=== PATIENT | female | born 1990 | race Caucasian/White ===

== ENCOUNTER 2023-04-06 13:06 | Outpatient (RCR) | payer OTHER, SELFPAY | END 2023-04-06 23:59 | disposition home or self-care (01) | LOC: RPT 13:06 | PROVIDERS: ATTENDING PHYSICIAN Family Medicine; FAMILY PHYSICIAN Internal Medicine | DX: M62.89 Other specified disorders of muscle (principal); N32.81 Overactive bladder; Z73.6 Limitation of activities due to disability | CPT/HCPCS: 97110; 97162; 97535 ==

== ENCOUNTER 2023-05-04 13:03 | Outpatient (RCR) | payer OTHER, SELFPAY | END 2023-05-04 23:59 | disposition home or self-care (01) | LOC: RPT 13:03 | PROVIDERS: ATTENDING PHYSICIAN Family Medicine; FAMILY PHYSICIAN Internal Medicine | DX: M62.89 Other specified disorders of muscle (principal); N32.81 Overactive bladder; Z73.6 Limitation of activities due to disability; N39.41 Urge incontinence; Q79.60 Ehlers-Danlos syndrome, unspecified | CPT/HCPCS: 97110; 97112; 97140 ==

== ENCOUNTER 2023-05-25 13:05 | Outpatient (RCR) | payer OTHER, SELFPAY | END 2023-05-25 23:59 | disposition home or self-care (01) | LOC: RPT 13:05 | PROVIDERS: ATTENDING PHYSICIAN Family Medicine; FAMILY PHYSICIAN Internal Medicine | DX: M62.89 Other specified disorders of muscle (principal); N32.81 Overactive bladder; Z73.6 Limitation of activities due to disability | CPT/HCPCS: 97014; 97110; 97112; 97140 ==

== ENCOUNTER → 2023-06-18 08:45 | Outpatient (REF) | payer OTHER, SELFPAY | LOC: RAD 08:45 | PROVIDERS: ATTENDING PHYSICIAN Family Medicine | DX: M25.551 Pain in right hip (principal) | CPT/HCPCS: 73502 ==

== ENCOUNTER 2023-07-06 13:00 | Outpatient (RCR) | payer OTHER, SELFPAY | END 2023-07-06 23:59 | disposition home or self-care (01) | LOC: RPT 13:00 | PROVIDERS: ATTENDING PHYSICIAN Family Medicine; FAMILY PHYSICIAN Internal Medicine | DX: M62.89 Other specified disorders of muscle (principal); N32.81 Overactive bladder; Z73.6 Limitation of activities due to disability | CPT/HCPCS: 97110; 97112; 97140 ==

== ENCOUNTER → 2023-07-17 15:48 | Outpatient (REF) | payer OTHER, SELFPAY | LOC: MRI 3T 15:48 | PROVIDERS: ATTENDING PHYSICIAN Family Medicine | DX: M25.551 Pain in right hip (principal) | CPT/HCPCS: 73721 ==

== ENCOUNTER 2023-07-27 15:09 | Outpatient (RCR) | payer OTHER, SELFPAY | END 2023-07-27 23:59 | disposition home or self-care (01) | LOC: RPT 15:09 | PROVIDERS: ATTENDING PHYSICIAN Family Medicine; FAMILY PHYSICIAN Internal Medicine | DX: M62.89 Other specified disorders of muscle (principal); N32.81 Overactive bladder; Z73.6 Limitation of activities due to disability | CPT/HCPCS: 97014; 97110; 97112; 97140 ==

== ENCOUNTER 2023-08-18 14:28 | Outpatient (RCR) | payer OTHER, SELFPAY | END 2023-08-18 23:59 | disposition home or self-care (01) | LOC: RPT 14:28 | PROVIDERS: ATTENDING PHYSICIAN Family Medicine; FAMILY PHYSICIAN Internal Medicine | DX: M62.89 Other specified disorders of muscle (principal); N32.81 Overactive bladder; Z73.6 Limitation of activities due to disability | CPT/HCPCS: 97110; 97112 ==

== ENCOUNTER 2024-10-18 18:51 | Emergency (ER) | payer OTHER, SELFPAY ==
[2024-10-18 19:00] VITALS: BP 124/85
[2024-10-18 19:53] LABS: Hematocrit 34.4 % (37.0-47.0); Hemoglobin 12.1 g/dL (12.0-16.0); Mean Corp Hgb Conc. 35.2 g/dL (33.0-37.0); Mean Corpuscular Volume 87.5 fL (81.0-99.0); Nucleated Red Blood Cells % 0 %; Platelet Count 215 10^3/uL (130-400); Red Cell Dist. Width 12.4 % (11.5-14.5)
[2024-10-18 19:58] LABS: ALT (SGPT) 23 U/L (0-35); AST (SGOT) 34 U/L (14-36); Albumin 3.6 g/dl (3.5-5.0); Alkaline Phosphatase 100 U/L (38-126); Blood Urea Nitrogen 8 mg/dl (7-17); Calcium 9.1 mg/dl (8.4-10.2); Carbon Dioxide 23 mmol/L (22-30); Chloride 106 mmol/L (98-107); Glucose 107 mg/dl (70-99); Potassium 4.3 mmol/L (3.5-5.1); Sodium 134 mmol/L (135-145); Total Protein 6.4 g/dl (6.3-8.2); eGFR > 60.00
[2024-10-18 20:03] LABS: Troponin I < 0.012 ng/ml
[2024-10-18 20:18] LABS: Beta HCG Quantitative 12925.00 mIU/ml
[2024-10-18 21:11] VITALS: BP 114/70; BMI 29.4
[2024-10-18 22:00] VITALS: BP 120/70
[2024-10-18 23:27] LABS: Troponin I < 0.012 ng/ml
--- NOTE | 2024-10-18 23:40 | ED.GENMED ---
History of Present Illness
General
Chief Complaint: Back Pain
Source: patient and spouse
Exam Limitations: none
Time Seen by Provider: 10/18/24 21:02
Nursing documentation reviewed up to this point in time: agreed with
History of Present Illness
History of Present Illness:
Note:
CHIEF COMPLAINT(S)
Intense squeezing pain between shoulder blades and chest
HISTORY OF PRESENT ILLNESS
The patient is a 34-year-old female who presents with episodes of intense squeezing pain localized between the shoulder blades and chest. She describes the pain as unusual and different from any previous experiences, characterized as severe and thea
to 'squeezing.' The onset of pain was between 2:00 and 3:00 PM today, occurring while the patient was sitting on the couch. The pain episodes recurred at around 4:00 PM and 5:30 PM, each lasting approximately 20 minutes. She notes difficulty
catching her breath during the episodes but is unsure if it correlates with the pain. There was no exertion or physical activity triggering the pain. She has a history of heartburn and a diagnosis of joint hypermobility syndrome, specifically the
non-cardiac type. A previous cardiologic evaluation revealed very mild mitral valve prolapse, which was advised to be monitored periodically. Today, she reports normal movements and denies vaginal bleeding or abdominal pain.
EXTERNAL RECORDS REVIEWED
An electrocardiogram (ECG) was conducted, along with blood tests, as part of the current evaluation.
ADDITIONAL HISTORY OBTAINED FROM SOURCES OTHER THAN THE PATIENT
The patient contacted her obstetricians office prior to the visit and was advised to seek evaluation at the emergency department, as the situation was beyond their scope.
PHYSICAL EXAM
General: Patient appears gravid with no acute distress, and she is afebrile.
Cardiovascular: Heart sounds reveal S1 and S2 without the presence of S3 or S4. No murmurs detected. Pulses are normal and palpable in all extremities.
Respiratory: Lungs are clear bilaterally.
Abdomen: Gravid uterus is noted.
PROBLEM LIST
Acute Problems:
1. Intense chest and interscapular pain
2. Dyspnea associated with chest pain episodes
Chronic Problems:
1. Joint hypermobility syndrome
2. Mild mitral valve prolapse
3. Heartburn
PLAN
The plan includes continued monitoring of the patient, evaluation of the ECG and blood test results, and assessment of well-being. External monitoring is to be initiated to ensure status. Further cardiological evaluation might be
necessary if symptoms persist or findings suggestive of cardiac involvement are noted.
DIFFERENTIAL DIAGNOSIS
The Differential Diagnosis includes, in no particular order and is not limited to:
1. Myocardial ischemia
2. Gastroesophageal reflux disease
3. Mitral valve prolapse symptomatology
4. Pulmonary embolism
5. Aortic dissection
6. Musculoskeletal pain secondary to joint hypermobility
7. Costochondritis
8. Pericarditis
9. Anxiety or panic attack
10. Thoracic outlet syndrome
EKG
My independent EKG interpretation is:
- Rhythm: Normal sinus rhythm with sinus arrhythmia
- RI Interval: Normal
- QRS Duration: Normal
- ST Segment: Normal
- QT Interval: Normal
- No ischemia observed
CARE-UPDATE
10/18/24 - 23:41
The patient remains asymptomatic with stable cardiac and activity. No suspicion of ACS, PE, or aortic dissection. The patient is stable and cleared for discharge. Follow-up with primary care and OB is advised.
Disposition:
SUMMARY OF ENCOUNTER
The patient, a 34-year-old female, was seen in the emergency department for episodes of intense squeezing pain between the shoulder blades and chest. The onset was sudden, with recurrent episodes lasting about 20 minutes each. The pain was atypical
and accompanied by dyspnea. Given the patients history of mild mitral valve prolapse and joint hypermobility syndrome, a thorough cardiac evaluation was conducted. An ECG and blood tests were performed, showing no signs of acute cardiac events. The
patient was stable, with clear lungs and normal heart sounds upon examination. Consultations with her body component engineer were made to ensure well-being, and external monitoring was ordered.
DISPOSITION
Discharge.
ASSESSMENT
Acute intense chest and interscapular pain, dyspnea, and non-cardiac chest pain.
PLAN
- Continue to monitor symptoms and advise follow-up with primary care and PRODUCT DEVELOPMENT ENGINEER.
- Evaluate if there are recurrent episodes of pain or any new symptoms develop.
- Ensure external monitoring is conducted to ensure well-being.
- Further cardiologic evaluation if symptoms persist.
INDEPENDENT REVIEW OF LABS AND INTERPRETATION OF TESTS
My independent EKG interpretation is:
- Rhythm: Normal sinus rhythm with sinus arrhythmia
- RI Interval: Normal
- QRS Duration: Normal
- ST Segment: Normal
- QT Interval: Normal
- No ischemia observed
MANAGEMENT OF THE PATIENTS CARE WAS DISCUSSED WITH
Discussion was held with Dr. Manuel, the patient�s body component engineer, who agreed that the patient was stable for discharge after monitoring.
PATIENT EDUCATION AND COUNSELING
The patient was advised to follow up with her primary care provider and PRODUCT DEVELOPMENT ENGINEER, and to return to the emergency department if there was a recurrence of pain or any new symptoms.
FOLLOW-UP INSTRUCTIONS
The patient is instructed to follow up with her primary care physician and PRODUCT DEVELOPMENT ENGINEER for continued monitoring and care.
MEDICATION RECONCILIATION
No medications were administered or prescribed during the visit.
MEDICAL DECISION MAKING
-Chronic conditions affecting care include joint hypermobility syndrome, mild mitral valve prolapse, heartburn.
-Data:
Category 1:
-Non-emergency department records reviewed, external record reviewed included a previous cardiological evaluation noting mild mitral valve prolapse.
-Clinical information obtained from an independent historian included advice from the obstetricians office to seek emergency evaluation.
Category 3:
-Discussion of management with Dr. Manuel, the PRODUCT DEVELOPMENT ENGINEER, who agreed the patient was stable for discharge after monitoring.
-Risk: Consideration of Admission/Observation: Escalation of care including admission/observation was considered given the complexity and risk of the patients presenting complaint, exam findings, and underlying comorbidities. However, ultimately the
patient is deemed safe for outpatient management with close follow-up. Reasoning: Work-up is reassuring, does not reveal any acute life/organ-threatening processes, patients symptoms well-controlled upon reevaluation, reexamination is reassuring,
vitals are stable, patient agreeable with discharge, reliable for follow-up.
DIAGNOSIS
- Non-cardiac chest pain (ICD-10: R07.89)
- Back pain (ICD-10: M54.9)
Phy Exam
Physical Exam
Physical Exam:
.
Course
Orders/Labs/Results
Orders:
Orders
10/18/24 19:05
Electrocardiogram (*1) Urgent
Reason for Study: Chest Pain
EKG- Treatment ONCE
10/18/24 19:12
Complete Blood Count/With Diff Urgent
Comprehensive Metabolic Panel Urgent
HCG, Beta Quantitative [Beta HCG Quantitative] Urgent
Is this a screen?: No
Troponin I Urgent
10/18/24 22:58
Troponin I Urgent
Abnormal Lab Results
10/18/24
19:12
WBC 10.9 H 10^3/uL
(4.8-10.8)
RBC 3.93 L 10^6/uL
(4.20-5.40)
Hct 34.4 L %
(37.0-47.0)
Abs Immat Gran (auto) 0.1 H 10^3/uL
(0-0.05)
Absolute Neuts (auto) 7.6 H 10^3/uL
(1.4-6.5)
Absolute Monos (auto) 1.0 H 10^3/uL
(0.1-0.6)
Lymphocytes % 20.0 L %
(20.5-51.1)
Sodium 134 L mmol/L
(135-145)
Creatinine 0.5 L mg/dL
(0.6-1.0)
Glucose 107 H mg/dl
(70-99)
10/18/24 19:12
10/18/24 19:12
Vital Signs
Initial and Last Documented VS:
Initial Vital Signs
Temp Pulse Resp BP Pulse Ox
97.6 F 80 18 124/85 97
10/18/24 19:00 10/18/24 19:00 10/18/24 19:00 10/18/24 19:00 10/18/24 19:00
Last Documented Vital Signs
Temp Pulse Resp BP Pulse Ox
97.6 F 72 18 120/70 97
10/18/24 19:00 10/18/24 23:15 10/18/24 23:15 10/18/24 22:00 10/18/24 23:15
*Pulse Oximetry
SaO2: 97
Oxygen Mode of Delivery: Room air
Patient hypoxic: no
*Critical Care Note
Total Time (30-74mins, 75-104mins- exclusive of procedures): Not Applicable
ED Attending Note
-
Portions of this chart may have been created with voice recognition software.� Occasional wrong word or��sound alike� substitutions may have occurred due to the inherent limitations of voice recognition software.
Discharge Plan
Departure
Patient Disposition: Home (Routine Discharge)
Date of Disposition: 10/18/24
Time of Disposition: 23:42
Patient with high blood pressure during this ER visit?: No
Condition: Good
Discharge Problem:
Chest pain
Instructions: Upper Back Pain (DC), Chest pain - Discharge instructions
Prescriptions:
No Action
[id number] 1 mg Tablet
1 tab PO DAILY
ibuprofen 600 mg Tablet
600 mg PO Q6HPRN PRN (Reason: moderate pain/cramps) Qty: 0 0RF
acetaminophen 325 mg Tablet
650 mg PO Q4HPRN PRN (Reason: mild pain) Qty: 0 0RF
Referrals:
Beto Aguilar MD [Family Provider, Family Practice]
Interventions
Interventions:
*Risk Screen - Suicide Last Done: 10/18/24 19:00
*General Assessment Last Done: 10/18/24 19:00
*Neglect/Abuse Screening Last Done: 10/18/24 19:00
*ED- Fall Risk Assessment Last Done: 10/18/24 21:12
*ED COVID-19 Vaccine History Last Done: 10/18/24 21:12
ED-Musculoskeletal Assessment Last Done: 10/18/24 21:17
Discharge Date and Time
Print Language: STATELESS
== END 2024-10-18 23:52 | disposition home or self-care (01) ==
LOC: EMR 18:51
PROVIDERS: Emergency Medicine; EMERGENCY PHYSICIAN Emergency Medicine; FAMILY PHYSICIAN Student in an Organized Health Care Education/Training Program
DX: R07.9 Chest pain, unspecified (principal); I49.8 Other specified cardiac arrhythmias; I34.1 Nonrheumatic mitral (valve) prolapse
CPT/HCPCS: 99284; 80053; 84484; 84702; 85025; 93005

== ENCOUNTER 2024-12-16 08:02 | Inpatient (IN) | payer OTHER, SELFPAY ==
[2024-12-16 08:44] VITALS: BP 140/74
[2024-12-16 10:14] LABS: Hematocrit 35.7 % (37.0-47.0); Hemoglobin 12.0 g/dL (12.0-16.0); Mean Corp Hgb Conc. 33.6 g/dL (33.0-37.0); Mean Corpuscular Volume 88.8 fL (81.0-99.0); Nucleated Red Blood Cells % 0 %; Platelet Count 218 10^3/uL (130-400); Red Cell Dist. Width 12.7 % (11.5-14.5)
[2024-12-16] MEDS: PITOCIN 30 UNITS/NSS 500 ML IV ×2 (10:23→22:19)
[2024-12-16] MEDS: PENICILLIN 110 UNITS IV (10:30)
[2024-12-16] MEDS: PENICILLIN 55 UNITS IV ×3 (14:12→22:00)
[2024-12-16] MEDS: SUBLIMAZE 100 MCG EPIDURAL (17:56)
[2024-12-16] MEDS: FENTANYL/BUPIVACAINE 100 EPIDURAL (17:56)
[2024-12-16] MEDS: LR 1000 IV (21:39)
[2024-12-17] MEDS: TYLENOL 650 MG PO ×3 (02:04→20:06)
[2024-12-17 05:07] LABS: Hematocrit 36.9 % (37.0-47.0); Hemoglobin 13.0 g/dL (12.0-16.0)
[2024-12-17] MEDS: COLACE 100 MG PO ×2 (07:27→20:06)
[2024-12-17] MEDS: MOTRIN 600 MG PO ×2 (07:27→17:34)
[2024-12-17] MEDS: PRENATAL PLUS 1 TABLET PO (07:27)
[2024-12-18] MEDS: MOTRIN 600 MG PO ×2 (00:09→06:13)
[2024-12-18] MEDS: TYLENOL 650 MG PO ×2 (04:27→07:47)
[2024-12-18] MEDS: PRENATAL PLUS 1 TABLET PO (07:47)
[2024-12-18] MEDS: COLACE 100 MG PO (07:47)
[2024-12-20 13:10] LABS: Syphilis/T. pallidum Ab Reflex Negative (Negative)
== END 2024-12-18 11:45 | disposition home or self-care (01) | DRG 806 ==
LOC: LDRP 08:02
PROVIDERS: ADMITTING PHYSICIAN Obstetrics & Gynecology; FAMILY PHYSICIAN Student in an Organized Health Care Education/Training Program
PROC: 10907ZC Drainage of Amniotic Fluid, Therapeutic from Products of Conception, Via Natural or Artificial Opening (ICD-10-PCS; 2024-12-16)
PROC: 0HQ9XZZ Repair Perineum Skin, External Approach (ICD-10-PCS; 2024-12-17)
PROC: 10E0XZZ Delivery of Products of Conception, External Approach (ICD-10-PCS; 2024-12-17)
DX: O99.892 Other specified diseases and conditions complicating childbirth (principal); Q79.60 Ehlers-Danlos syndrome, unspecified; Z37.0 Single live birth; O99.824 Streptococcus B carrier state complicating childbirth; Z3A.39 39 weeks gestation of pregnancy; O69.81X0 Labor and delivery complicated by cord around neck, without compression, not applicable or unspecified; O70.0 First degree perineal laceration during delivery; Z14.1 Cystic fibrosis carrier
CPT/HCPCS: 85014; 85018; 85025; 86780; 86850; 86900; 86901